=== PATIENT | male | born 1960 ===

== ENCOUNTER 2016-10-29 13:07 | Emergency (ER) | payer BC ==
[2016-10-29 13:35] VITALS: BP 140/87
--- NOTE | 2016-10-29 21:57 | UC ---
Elsa Grace Erika, scribed for Liliana Valdivia MD on 10/29/16 at 1448 . Abdominal Pain Male HPI - HPI Summary HPI Summary: Patient is a 56-year-old male presenting to [facility] with a CC of RUQ pain constant for the past 4 days. He describes the location as underneath his right ribs. He rates the pain as a 4/10, and describes it as a pressure. Pain is aggravated by bending forward, but is not aggravated by food. Patient denies fever, cough, and nausea. Patient reports that in 2006, he had trauma to the area, but does not note pain starting until 2007 - pain has been intermittent since then, lasting hours or days at a time. Patient reports that he has had XRs of his ribs , but has not had an ultrasound. PSHx hip replacement, corneal transplant. - History of Current Complaint Chief Complaint: UCGeneralIllness Stated Complaint: PAIN IN RIB AREA Time Seen by Provider: 10/29/16 14:38 Hx Obtained From: Patient Onset/Duration: Gradual Onset, Lasting Days, Still Present Timing: Constant Severity Currently: Moderate Pain Intensity: 4 Pain Scale Used: 0-10 Numeric Location: Discrete At: RUQ Radiates: No Character: Other - Pressure Aggravating Factor(s):: Movement Alleviating Factor(s): Nothing Associated Signs And Symptoms: Positive: Negative. Negative: Fever, Cough, Nausea - Allergies/Home Medications Allergies/Adverse Reactions: Allergies Allergy/AdvReac Type Severity Reaction Status Date / Time No Known Allergies Allergy Verified 10/29/16 13:35 PMH/Surg Hx/FS Hx/Imm Hx Previously Healthy: No - keratoconus, hip dysplasia Endocrine History Of: Denies: Diabetes Cardiovascular History Of: Denies: Hypertension, Pacemaker/ICD - Surgical History Surgical History: Yes Surgery Procedure, Year, and Place: LEFT CORNEA TRANSPLANT 2011. RT CORNEAL TRANSPLANT 2012. Hip replacement - Family History Known Family History: Positive: Hypertension, Diabetes, Other - [place] - Social History Occupation: Employed Full-time Lives: With Family Alcohol Use: Daily Alcohol Amount: 6 pk per day Substance Use Type: None Smoking Status (MU): Heavy Every Day Tobacco Smoker Type: Cigarettes Amount Used/How Often: 1/2 ppd Review of Systems Constitutional: Negative Skin: Negative Eyes: Negative ENT: Negative Respiratory: Negative Cardiovascular: Negative Gastrointestinal: Abdominal Pain - RUQ Genitourinary: Negative Motor: Negative Neurovascular: Negative Musculoskeletal: Negative Neurological: Negative Psychological: Negative All Other Systems Reviewed And Are Negative: Yes Physical Exam Triage Information Reviewed: Yes Appearance: Well-Appearing, Well-Nourished, Pain Distress - Mild Vital Signs: Initial Vital Signs Temp 99.2 F 10/29/16 13:30 Pulse 78 10/29/16 13:30 Resp 20 10/29/16 13:30 BP 140/87 10/29/16 13:30 Pulse Ox 99 10/29/16 13:30 Vital Signs Reviewed: Yes Eyes: Positive: Conjunctiva Clear, Other: - [place] cornea left eye ENT: Positive: Pharynx normal Neck: Positive: Supple Respiratory: Positive: Lungs clear, Normal breath sounds, No respiratory distress Cardiovascular: Positive: RRR, No Murmur, Pulses Normal, Brisk Capillary Refill Abdomen Description: Positive: No Organomegaly, Soft, Other: - Tender RUQ, no bony tenderness of the ribs. Negative: CVA Tenderness (R), CVA Tenderness (L), Distended, Guarding, Hepatomegaly, McBurney's Point Tenderness, Peritoneal Signs , Pulsatile Mass, Splenomegaly Bowel Sounds: Positive: Present Musculoskeletal: Positive: Strength Intact, ROM Intact Neurological: Positive: Alert, Muscle Tone Normal Psychological Exam: Normal Skin Exam: Normal Abd Pain Male Course/Dx - Course Course Of Treatment: discussed diff dx and most likely dx is cholelithiasis/ cholecystitis. Advised to follow up with PCP for further eval. - Differential Dx/Clinical Impression Differential Diagnosis/HQI/PQRI: Appendicitis, Gall Bladder Disease, Hepatitis, Ureteral Stone Provider Diagnoses: right upper quadrant abdominal pain Discharge - Discharge Plan Condition: Stable Disposition: HOME Patient Education Materials: Cholecystitis (ED), Gallstones (ED) Forms: *Work Release Referrals: Kris Friedman MD [Primary Care Provider] - 2 Days Additional Instructions: Please follow up with your PCP. RETURN TO URGENT CARE FOR ANY NEW OR WORSENING SYMPTOMS. The documentation as recorded by the Elsa lugo Erika accurately reflects the service I personally performed and the decisions made by Skip woodruff Barbara J, MD.
== END 2016-10-29 15:28 | disposition home or self-care (01) ==
LOC: UCEAST 13:07
DX: R10.11 Right upper quadrant pain (principal); F17.290 Nicotine dependence, other tobacco product, uncomplicated
CPT/HCPCS: 99211; G0463